=== PATIENT | female | born 1970 | race Caucasian/White ===

== ENCOUNTER → 2022-10-26 15:01 | Outpatient (BNVA) | payer OTHER, SELFPAY | PROVIDERS: Visit Provider Student in an Organized Health Care Education/Training Program | DX: M79.7 Fibromyalgia (principal) | CPT/HCPCS: 99202 ==

== ENCOUNTER → 2023-02-21 10:44 | Outpatient (BNVA) | payer OTHER, SELFPAY | PROVIDERS: Visit Provider Physician Assistant ==

== ENCOUNTER 2023-04-12 13:41 | Outpatient (AMB) | payer OTHER, SELFPAY ==
--- NOTE | 2023-04-12 13:51 | A.OFFVIS_ITS ---
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 Counterintelligence Specialist Required: Yes Counterintelligence Specialist Name: office cmi Allergies No Known Allergies Allergy (Verified 04/12/23 13:57) Medication List - Last Reconciled 04/12/23 by SAMMIE Olivarez dulaglutide (Trulicity) mg subcut duloxetine 60 mg PO DAILY empagliflozin-metformin 12.5-1,000 mg (Synjardy) 1 tab PO BID gabapentin 100 mg PO TID insulin detemir U-100 (Levemir FlexTouch U-100 Insulin) 50 units subcut BEDTIME olmesartan-hydrochlorothiazide 40-25 mg 1 tab PO DAILY simvastatin 20 mg PO BEDTIME HPI HPI Comments History of Present Illness Details Pt is here to start the [facility] Weight Management surgical weight loss program. Her goal is to lose weight and achieve a healthy lifestyle as well as to improve, if not resolve, obesity related medical conditions, including DM, HTN, HLD. She reports first being concerned about her weight over the last 5 years or more, highest weight to date was 350. Her initial presentation to the [facility] SWL program was on 02/21/23 with a weight of 202 pounds and a BMI of 37Current weight is 197 pounds with a BMI of 36. She has tried multiple methods of weight loss including exercise and fad diets without permanent results. She lives with her kids. She does not work. She states she was living in [place] and then moved to [place] and has since returned to [place]. 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 She has not seen neurology and was unable to state how she was diagnosed with Sarcoidosis. She additionally endorses fibromyalgia and significant fatigue limiting her exercise capacity. She states she has her medical records from [place] at home BS 95-120/130-250 She wakes at:?9am, and goes to bed at?[place]. Dinner is at 6 pm. Breakfast: 2 eggs w coffee w milk AM snack: fruit Lunch: fruit PM snack: skip Dinner: chicken, salad, rice, beans After dinner: cereal, dry sugar pops Other snacks: crackers, ice cream Liquids: 96-120 oz water,12-24 oz pepsi Alcohol/marijuana/tobacco intake: none Exercise: none, no gym membership, willing to join [facility] GERD score: 9 EFREM score: 1 ESS score: 8 QOL score: 67 PFSH Medical History Arthritis Diabetes Multiple sclerosis Secondary hypertension Surgical History S/P cholecystectomy Family History Mother Diabetes Father Brain cancer Maternal Grandmother Diabetes Hypercholesteremia Social History Household Members: Children Alcohol intake: never Patient Tobacco Use Status: Never used Tobacco Current occupational status: disabled Review of Systems Const All systems reviewed & are unremarkable except as noted in HPI and below Physical Exam Vital Signs: Last Vital Signs Temp 97.4 F 04/12/23 13:58 Pulse 80 04/12/23 13:58 BP 101/56 L 04/12/23 13:58 Pulse Ox 96 04/12/23 13:58 Oxygen Delivery Method Room Air 04/12/23 13:58 BMI result Body Mass Index 36.0 Const General: cooperative, healthy appearing and no acute distress Orientation/consciousness: patient oriented x3 HEENT Head: Yes normal to inspection Ears: hearing grossly normal bilaterally General nose exam: Normal external nose present Face and sinus: Yes normal facial exam Eyes General: appearance normal, both eyes and all related structures Resp Effort & Inspection: normal respiratory effort Auscultation: clear to auscultation bilaterally Cardio Rate: regular rate Rhythm: regular rhythm Heart sounds: S1 normal heart sound present and S2 normal heart sound present GI Inspection: Yes normal to inspection, No distended and Yes obesity Palpation (GI): Soft to palpation, nontender and no guarding Auscultation: normal bowel sounds Skin General skin exam: no rashes or lesions noted Neuro General: patient oriented x3 Extrem General: No edema Psych Appearance: grossly normal Mental Status: mental status grossly normal Speech and movement: Normal speech and movement present Affect: normal affect Attitude: cooperative Assessment & Plan Assessment & Plan (1) Obesity (BMI 30-39.9): Code(s): E66.9 - Obesity, unspecified Plan: This is a?52 yo female who will start our SWL program to prepare for bariatric surgery.? Blood work, h pylori , CXR, ECG, Abd US and UGI will be ordered at her next visit if she wishes to continue in the program. She will be scheduled for RD and BH initial consultations at that time as well. She will start SWL classes and watch the first three videos before her next appointment. ? Adequate sleep of 7-8 hours per night discussed, awakening at 9 am and going to bed at midnight ? Purchase body composition analyzer scale (Naya pugh or Kathy recommended) and check weight weekly. The best time to do this is first thing in the morning after going to the bathroom. 1. Nutritional counseling: Be sure to careful read the number of scoops per shake Start with 3 Premier Protein shakes ([employer], [employer], [employer]), First shake, (1 scoop in 8 oz low fat unsweetened almond milk or water) at 10am- 12pm, Second shake, also with 1 scoop in 8 oz unsweetened almond milk at 1pm-3pm 1 protein bar (Zone Perfect bars at [employer], [employer], or [employer]) at 4pm-6pm. Dinner at 6pm (9 forks of protein and 9 forks of salad/vegetables). Meal to include lean meat (beef, fish, pork, turkey, chicken), cooked vegetables or a salad with olive oil and/or fruits (berries, pears, apples, kiwi). Avoid salt, breads, potatoes, rice, pasta, desserts. Another shake with 1 scoop in 8 oz unsweetened almond milk at 8pm-10pm. Try to drink 64 oz of water daily and avoid soda and juices. ?2. Each shake would be drunk slowly, like coffee in a period of 2 hours. ?3. Cut each bar in 4 pieces and eat each piece in 30 min ?to make each bar last 2 hours. ?4. I emphasized the importance of measuring accurately the food portion and measure it carefully when serving the food on the plate ?5. The meal portions include 9 full-size forks of meat and 9 full-size forks of salad. You always eat the meat portion but you can replace up to half of the forks of salad/vegetables with rice, potatoes or pasta, or a fruit ?if you like. The less you do it the better weight loss will be. ?6. One full-size fork is what can be scooped on the fork without falling aside and not what can be bit with the fork. Use regular forks like those you find in a typical restaurant. ?7.? Please send me weight measurements as soon as possible and then once a week. Always include your diet and exercise plan. Alternatively come weekly at the office for weight checks and send me the measurements. ?8. Exercise counseling: Begin by watching a stretching for beginners video. Start slowly and begin to stretch your muscles. You should do this before and after each exercise session to prevent injury. Please join [facility] gym near your home. Ask the post manager or one of the trainers how to use the machines if you are unfamiliar with them. Start elliptical with a resistance of 0. Increase resistance by 1 every 3 min to your most comfortable resistance with a max resistance of 6. Reduce the resistance by 1 every 3 minutes back down to 0 and repeat cycles for 300 calories. Alternatively, start treadmill with a speed of 2.5 and incline of 0, increasing incline by 1 every 3 minutes to the highest comfortable level (max 6 for now) then decrease in the same fashion. Repeat process to a goal of 300 calories. Goal of 2000 calories burned or more weekly. You may also consider use of the stationary bike. The easiest would be to chose the fat-burn or interval training program on the machine and do this until you reach the 300 calorie goal. Alternatively, you can manually adjust the resistance in a similar fashion as mentioned above, (resistance of 2-8 with a goal speed of 12 mph). Tracking calories is essential. 9. Alternatively start walking outside daily, tracking calories with a goal of 300 calories per day, daily. You can download the kaitlin [employer] which can track your time, distance and calories while walking outside. You press start in the kaitlin when you start and then stop when you are finished. You may also walk in the pool in the shallow end. Start with 10 minutes and increase by 3 minutes every 3 days to a goal of 45 minutes. 10.? It is important to text me with your weight weekly as well if you have any problems with the plans. 11. Discussed and answered all questions regarding?obtained consent to participate in the [facility]?Registry. 12. Please follow the diet plan exactly, without any change. If you do not like something about the plan or you feel hungry, you need to communicate with me so I can help you revise the plan. You should not change the plan yourself. Text me at [phone] 13. Goal is to lose at least 12 pounds in the first month 14. Goal is to lose 10% of your weight before surgery, which is about 20 lbs. Ultimate weight goal: 177 lbs before surgery Patient is morbidly obese and is not considered stable at this time.?I spent a total of 70 minutes reviewing/updating records, examining the patient and counseling the patient on weight management as detailed above. Coding Level of Care Code New Pt Level 5 (54799) Diagnoses Obesity (BMI 30-39.9) E66.9 Time Spent (min) 70
[2023-04-12 13:58] VITALS: BP 101/56; PULSE 80; TEMP 36.3; O2SAT 96; BMI 36.0
== END 2023-04-12 18:28 | disposition home or self-care (01) ==
LOC: HO.HBS 13:41
PROVIDERS: Visit Provider Physician Assistant Surgical
DX: E66.9 Obesity, unspecified (principal); Z68.37 Body mass index [BMI] 37.0-37.9, adult
CPT/HCPCS: 99205

== ENCOUNTER → 2023-04-12 13:41 | Outpatient (BNVA) | payer OTHER, SELFPAY | PROVIDERS: Visit Provider Physician Assistant Surgical | DX: E66.9 Obesity, unspecified (principal); Z68.36 Body mass index [BMI] 36.0-36.9, adult | CPT/HCPCS: 99202 ==

== ENCOUNTER 2023-06-14 11:08 | Outpatient (AMB) | payer OTHER, SELFPAY ==
--- NOTE | 2023-06-14 11:11 | MHC.OFFVISWM ---
Intake VS Expanded 06/14/23 11:15 BP 121/69 Blood Pressure Location Rt brachial Blood Pressure Position Sitting Pulse 88 Pulse Source Pulse Oximeter Temp 96.3 F L Temperature Source Tympanic Pulse Oximetry 96 Oxygen Delivery Method Room Air Height 5 ft 2 in Weight 176 lb BMI 32.2 Body Fat % 36.8 Body Fat Mass 64.8 Fat Free Mass 111.2 Visceral Fat Rating 9.0 Body Water % 44.9 Body Water Mass 79.0 Muscle Mass/Score 105.4 Basal Metabolic Rate/Score 1,512 Intake Visit Reasons: (OV) F/U SWL Roof Service Technician Required: Yes Roof Service Technician Name: office cmi Allergies No Known Allergies Allergy (Verified 04/12/23 13:57) Medication List - Last Reconciled 06/14/23 by SAMMIE Olivarez dulaglutide (Trulicity) mg subcut duloxetine 60 mg PO DAILY empagliflozin-metformin 12.5-1,000 mg (Synjardy) 1 tab PO BID gabapentin 100 mg PO TID insulin detemir U-100 (Levemir FlexTouch U-100 Insulin) 50 units subcut BEDTIME olmesartan-hydrochlorothiazide 40-25 mg 1 tab PO DAILY simvastatin 20 mg PO BEDTIME HPI HPI Comments History of Present Illness Details The patient is a pleasant 53 year old female who returns to the clinic for pre-operative surgical weight loss management. They were last seen in the office on 04/12/23, recorded weight at that time was 197 pounds, with a BMI of 36. Today's weight is 176 pounds and BMI is 32.2. There has been a weight loss of 21 pounds since initiating the surgical weight loss program on 04/12/23 with a total body weight loss of 10.6 %. The patient reports she states she saw [place]y [place] [facility] and had an [place] but that she requires more testing. She was not sure she wanted to continue in the program at her first appointment. She has not been communicating with me since April, she has not been able to exercie due to bone pain, she has not been following the meal plan and she has had financial strain. Yet she has still lost 21 pounds She is doing 2 shakes 2-3 x per week and 3 shakes 4-5 times per week. Not doing the bar due to financial reasons. Has a meal at 3-4 in the afternoon. Having a meal in the morning as well Recommended meal plan includes: 3 Premier Protein shakes ([employer], [employer], [employer]), First shake, (1 scoop in 8 oz low fat unsweetened almond milk or water) at 10am-12pm, Second shake, also with 1 scoop in 8 oz unsweetened almond milk at 1pm-3pm 1 protein bar (Zone Perfect bars at [employer], [employer], or [employer]) at 4pm-6pm. Dinner at 6pm (9 forks of protein and 9 forks of salad/vegetables). Another shake with 1 scoop in 8 oz unsweetened almond milk at 8pm-10pm. Drinking 32-48 oz of water Current exercise plan includes: none due to terrible bone pain PFSH Medical History Multiple sclerosis Secondary hypertension Arthritis Diabetes Surgical History S/P cholecystectomy Family History Mother Diabetes Father Brain cancer Maternal Grandmother Diabetes Hypercholesteremia Social History Household Members: Children Alcohol intake: never Patient Tobacco Use Status: Never used Tobacco Current occupational status: disabled Review of Systems Const All systems reviewed & are unremarkable except as noted in HPI and below Physical Exam Vital Signs: Last Vital Signs Temp 96.3 F L 06/14/23 11:15 Pulse 88 06/14/23 11:15 BP 121/69 06/14/23 11:15 Pulse Ox 96 06/14/23 11:15 Oxygen Delivery Method Room Air 06/14/23 11:15 BMI result Body Mass Index 32.2 Const General: healthy appearing and no acute distress Resp Effort & Inspection: normal respiratory effort Auscultation: clear to auscultation bilaterally Cardio Rate: regular rate Rhythm: regular rhythm GI Auscultation: normal bowel sounds Extrem General: Yes normal to inspection Assessment & Plan Assessment & Plan (1) Obesity (BMI 30-39.9): Code(s): E66.9 - Obesity, unspecified Plan: The patient is going to take a break from our program. She certainly may return at any time in the future if her conditions change. She is going to continue to pursue the underlying neurological disorder that is causing her tremendous bone pain. She has eliminated carbohydrates from her diet and overall feels better from her weight loss. As mentioned above, she may return to the clinic in the future if she wishes. Coding Level of Care Code Est Pt Level 3 (45981) Diagnoses Obesity (BMI 30-39.9) E66.9
[2023-06-14 11:15] VITALS: BP 121/69; PULSE 88; TEMP 35.7; O2SAT 96; BMI 32.2
== END 2023-06-14 11:46 | disposition home or self-care (01) ==
PROVIDERS: Visit Provider Physician Assistant Surgical
DX: E66.9 Obesity, unspecified (principal); Z68.32 Body mass index [BMI] 32.0-32.9, adult
CPT/HCPCS: 99213

== ENCOUNTER → 2023-06-14 11:08 | Outpatient (BNVA) | payer OTHER, SELFPAY | PROVIDERS: Visit Provider Physician Assistant Surgical | DX: E66.9 Obesity, unspecified (principal); E11.9 Type 2 diabetes mellitus without complications; G35 Multiple sclerosis; Z68.32 Body mass index [BMI] 32.0-32.9, adult; Z90.49 Acquired absence of other specified parts of digestive tract | CPT/HCPCS: 99212 ==

== ENCOUNTER → 2024-01-22 10:25 | Outpatient (BNVA) | payer OTHER, SELFPAY | PROVIDERS: Visit Provider Physician Assistant Surgical ==